=== PATIENT | male | born 1965 | race Caucasian/White ===

== ENCOUNTER 2019-06-19 21:03 | Emergency (ER) | payer BC, OTHER ==
--- NOTE | 2019-06-19 21:09 | ED.PDOC ---
History of Present Illness - General Time Seen by Provider: 06/19/19 21:05 Source: patient, RN notes reviewed, Vital Signs reviewed, EMS notes reviewed Exam Limitations: no limitations - History of Present Illness Initial Comments: pt is a 54 yo male with PMH of anxiety who presents with cough and CP x 4 days. States he has had productive cough of yellow sputum and chest pain when he coughs that has been getting worse over past 4 days. Has mild SOB. Denies fever, chills, NVD. Allergies/Adverse Reactions: Allergies NO KNOWN ALLERGY Allergy (Verified 06/19/19 21:21) Home Medications: Ambulatory Orders Albuterol Inhaler [Ventolin Hfa Inhaler] 2 puff INH Q6H PRN #1 inh 06/19/19 Benzonatate Perles [Tessalon Perles] 100 mg PO Q6H PRN #20 cap 06/19/19 Diazepam 5 mg PO QID PRN 06/19/19 Prednisone 60 mg PO DAILY 5 Days #15 tab 06/19/19 Review of Systems - Review of Systems Constitutional: Denies: chills, fever EENTM: States: nose congestion. Denies: ear pain, throat pain Respiratory: States: cough, short of breath, wheezing Cardiology: Denies: edema, palpitations, syncope Gastrointestinal/Abdominal: Denies: diarrhea, nausea, vomiting Genitourinary: States: no symptoms reported Musculoskeletal: Denies: back pain, neck pain Neurological: States: anxiety Hematologic/Lymphatic: States: no symptoms reported All other Systems: Reviewed and Negative Family Medical History - Family History Mother Family History: Unknown Physical Exam - Physical Exam General Appearance: Alert, Comfortable, No apparent distress Ears, Nose, Throat: normal pharynx, other - Bilateral TM's have no erythema or effusion Respiratory: chest non-tender, no respiratory distress, other - Good air moovement with mild expiratory wheezes Cardiovascular/Chest: regular rate, rhythm, no edema, no murmur Gastrointestinal/Abdominal: non tender, soft, no pulsatile mass Back Exam: no CVA tenderness, no vertebral tenderness Extremity: normal range of motion, non-tender, normal inspection, no calf tenderness Neurologic: no motor/sensory deficits, alert, normal mood/affect Skin Exam: normal color, warm/dry Progress - Progress Progress: 06/19/19 21:59 Pt presents with cough and chest pain with cough for several days. CXR unremarkable. Labs and EKG reassuring. Feels much improved post nebs and feels comfortable going home. Will treat with albuterol, prednisone and Tessalon and f/u with pcp in 1-2 days for recheck. srp given. - Results/Orders Results/Orders: EKG at 2114 NSR, rate 72, nml intervals, no ST abnormality EXAM DESCRIPTION: Chest,1 View CLINICAL HISTORY: 54 years Male short of breath COMPARISON: None. FINDINGS: The cardiomediastinal silhouette appears unremar kable. No consolidating infiltrates or pleural effusions. No pneumothorax. Mild elevation the left hemidiaphragm with basilar atelectasis. Degenerative changes in the left shoulder. IMPRESSION: Elevation the left hemidiaphragm with a small amount of atelectasis in the left lung base 06/19/19 21:05 IV:Start .ONCE 06/19/19 21:06 EKG Assessment ONCE 06/19/19 21:15 EKG .ONCE Laboratory Results - last 24 hr 06/19/19 06/19/19 06/19/19 20:45 20:45 20:45 WBC 9.2 RBC 5.00 Hgb 15.4 Hct 45.8 MCV 91.5 MCH 30.8 MCHC 33.6 RDW 14.0 Plt Count 261 MPV 8.4 Absolute Neuts (auto) 5.90 Absolute Lymphs (auto) 2.40 Absolute Monos (auto) 0.60 Absolute Eos (auto) 0.30 Absolute Basos (auto) 0.10 Neutrophils % 63.6 Lymphocytes % 26.1 Monocytes % 6.1 Eosinophils % 3.1 Basophils % 1.1 Sodium 136 Potassium 3.9 Chloride 98 L Carbon Dioxide 28 Anion Gap 13.9 BUN 20 H Creatinine 0.77 BUN/Creatinine Ratio 26.0 H Random Glucose 72 Serum Osmolality 273.1 L Calcium 9.7 Total Bilirubin 0.7 AST 32 ALT 31 Alkaline Phosphatase 65 Troponin I < 0.02 Serum Total Protein 8.3 H Albumin 4.7 Globulin 3.6 H Albumin/Globulin Ratio 1.3 Departure - Departure Clinical Impression: Pleurisy, Chest wall pain Acute bronchitis Qualifiers: Bronchitis organism: unspecified organism Qualified Code(s): J20.9 - Acute bronchitis, unspecified Time of Disposition: 22:01 Disposition: Discharge to Home or Self Care Condition: Good Departure Forms: ED Discharge - Pt. Copy, Patient Portal Self Enrollment Instructions: Acute Bronchitis, Adult (DC) Activity: increase activity as tolerated Prescriptions: Albuterol Inhaler [Ventolin Hfa Inhaler] 2 puff INH Q6H PRN #1 inh PRN Reason: Wheezing Benzonatate Perles [Tessalon Perles] 100 mg PO Q6H PRN #20 cap PRN Reason: Cough Prednisone 60 mg PO DAILY 5 Days #15 tab Home Medications: Ambulatory Orders Albuterol Inhaler [Ventolin Hfa Inhaler] 2 puff INH Q6H PRN #1 inh 06/19/19 Benzonatate Perles [Tessalon Perles] 100 mg PO Q6H PRN #20 cap 06/19/19 Diazepam 5 mg PO QID PRN 06/19/19 Prednisone 60 mg PO DAILY 5 Days #15 tab 06/19/19
[2019-06-19 21:20] VITALS: TEMP 96.4
[2019-06-19] MEDS: methylPREDNISolone SODIUM SUC 125 MG/2 ML VIAL IV ONE (21:46)
--- NOTE | 2019-06-19 21:55 | RAD ---
EXAM DESCRIPTION: Chest,1 View CLINICAL HISTORY: 54 years Male short of breath COMPARISON: None. FINDINGS: The cardiomediastinal silhouette appears unremarkable. No consolidating infiltrates or pleural effusions. No pneumothorax. Mild elevation the left hemidiaphragm with basilar atelectasis. Degenerative changes in the left shoulder. IMPRESSION: Elevation the left hemidiaphragm with a small amount of atelectasis in the left lung base Electronically signed by: Lizeth Parekh MD 06/19/2019 9:54 PM [facility]
[2019-06-19] MEDS: IPRATROPIUM/ALBUTEROL 3 ML VIAL NEB ONE (21:56)
[2019-06-19 22:32] VITALS: BP 131/78; O2SAT 99
== END 2019-06-19 22:32 | disposition home or self-care (01) ==
LOC: ER 21:03
DX: J20.9 Acute bronchitis, unspecified (principal); R09.1 Pleurisy; R07.89 Other chest pain